=== PATIENT | male | born 1975 | race Caucasian/White ===

== ENCOUNTER 2017-07-04 08:02 | Emergency (ER) | payer SELFPAY ==
[2017-07-04] MEDS ORDERED: ASPIRIN 325 MG TAB ONE (08:31)
[2017-07-04 08:53] LABS: Absolute Lymphocytes (CBC) 1.1 K/uL (0.7-4.9); Absolute Monocytes 0.7 K/uL (0.1-1.3); Absolute Neutrophil 5.9 K/uL (1.8-8.0); Basophils % 0.5 % (0-1.3); Eosinophils % 0.9 % (0-4.4); Hematocrit 47.8 % (39.6-49.0); Lymphocytes % 14.2 % (15.3-44.8); MCH 32.1 pg (27.0-35.0); MCV 92.2 fL (80-100); Monocytes % 8.8 % (3.3-12.3); RBC Red Blood Cell Count 5.18 M/uL (4.33-5.43)
[2017-07-04 08:59] LABS: Protime INR 1.11
[2017-07-04 09:05] LABS: Bicarbonate 25 mEq/L (21-31); Glucose Level 104 mg/dL (65-120); Potassium 3.4 mEq/L (3.6-5.0); Sodium Level 138 mEq/L (135-145)
[2017-07-04 09:11] LABS: ALT/SGPT 48 IU/L (10-60); AST/SGOT 47 IU/L (10-42); Albumin 4.8 g/dL (3.2-5.5); Alkaline Phosphatase 68 IU/L (42-121); BUN Blood Urea Nitrogen 10 mg/dL (6-20); Bilirubin Direct 0.2 mg/dL (0-0.2); Bilirubin Total 1.3 mg/dL (0.3-1.2); Creatine Phosphokinase 795 IU/L (22-269); Magnesium 1.9 mg/dL (1.8-2.5); Protein, Total 8.7 g/dL (6.0-8.3)
[2017-07-04 09:13] LABS: CKMB Creatine Kinase MB 4.7 ng/ml (0.3-4.0)
--- NOTE | 2017-07-04 09:44 | RAD REPORT ---
EXAM DESCRIPTION: Dov Single View07/04/2017 8:45 am CLINICAL HISTORY: Chest pain COMPARISON: none FINDINGS: The lungs appear clear of acute infiltrate. The heart is normal size IMPRESSION: No acute abnormalities displayed
[2017-07-04] MEDS ORDERED: NA CHLORIDE 0.9% 1,000 ML ONE (10:05)
--- NOTE | 2017-07-04 12:01 | EDPHYS ---
Physician Documentation [facility] Name: Mal Valdez Age: 42 yrs Sex: Male : 1975 Arrival Date: 07/04/2017 Time: 08:05 Bed 17 Private MD: ED Physician William Granados HPI: 07/04 09:00 This 42 yrs old Male presents to ER via Ambulatory with complaints of Chest pm1 Pain. 09:00 The patient or guardian reports chest pain that is located primarily in the substernal pm1 area. Onset: 1 hour prior to arrival. The pain does not radiate. Associated signs and symptoms: Pertinent negatives: abdominal pain, cough, diaphoresis, dizziness, headache, nausea, palpitations, shortness of breath, syncope. The chest pain is described as a pressure. Duration: The patient or guardian reports multiple episodes, that have now resolved, the episodes last approximately 1 minute(s). Modifying factors: The symptoms are alleviated by nothing. the symptoms are aggravated by nothing. Severity of pain: in the emergency department the pain has improved. The patient has not experienced similar symptoms in the past. The patient has not recently seen a physician, and does not have an established primary care provider, just moved to [facility], PCP is out of town and has not seen his PCP in the past 3 months. Has not taken Norvasc for the past 3 months. Historical: - Allergies: 08:19 Tylenol; iw - Home Meds: 08:19 Norvasc 10 mg Oral tab 1 tab three times a day [Active]; iw - PMHx: 08:19 Hypertension; iw - PSHx: 08:19 None; iw - Immunization history:: Adult Immunizations not up to date. - Social history:: Smoking status: Patient/guardian denies using tobacco. ROS: 09:00 Constitutional: Negative for fever, chills, and weight loss, Eyes: Negative for injury, pm1 pain, redness, and discharge, ENT: Negative for injury, pain, and discharge, Neck: Negative for injury, pain, and swelling. 09:00 Respiratory: Negative for shortness of breath, cough, wheezing, and pleuritic chest pain, Abdomen/GI: Negative for abdominal pain, nausea, vomiting, diarrhea, and constipation, Back: Negative for injury and pain, : Negative for injury, bleeding, discharge, and swelling, MS/Extremity: Negative for injury and deformity, Skin: Negative for injury, rash, and discoloration, Neuro: Negative for headache, weakness, numbness, tingling, and seizure. 09:00 Cardiovascular: Positive for chest pain, Negative for edema, palpitations. Exam: 09:00 Constitutional: This is a well developed, well nourished patient who is awake, alert, pm1 and in no acute distress. Head/Face: Normocephalic, atraumatic. Neck: Trachea midline, no thyromegaly or masses palpated, and no cervical lymphadenopathy. Supple, full range of motion without nuchal rigidity, or vertebral point tenderness. No Meningismus. Chest/axilla: Normal chest wall appearance and motion. Nontender with no deformity. No lesions are appreciated. Cardiovascular: Regular rate and rhythm with a normal S1 and S2. No gallops, murmurs, or rubs. Normal PMI, no JVD. No pulse deficits. Respiratory: Lungs have equal breath sounds bilaterally, clear to auscultation and percussion. No rales, rhonchi or wheezes noted. No increased work of breathing, no retractions or nasal flaring. Abdomen/GI: Soft, non-tender, with normal bowel sounds. No distension or tympany. No guarding or rebound. No evidence of tenderness throughout. Back: No spinal tenderness. No costovertebral tenderness. Full range of motion. Skin: Warm, dry with normal turgor. Normal color with no rashes, no lesions, and no evidence of cellulitis. MS/ Extremity: Pulses equal, no cyanosis. Neurovascular intact. Full, normal range of motion. 09:00 Neuro: Orientation: is normal, Motor: is normal, moves all fours, Gait: is steady, at a normal pace, without difficulty. Vital Signs: 08:20 BP 165 / 117; Pulse 93; Resp 18; Temp 98.8(TE); Pulse Ox 97% ; Weight 81.65 kg; Height iw 5 ft. 11 in. (180.34 cm); Pain 8/10; 08:40 BP 184 / 120; Pulse 90; Resp 18 S; Pulse Ox 97% on R/A; aa5 09:00 BP 169 / 107; Pulse 76; Resp 18 S; Pulse Ox 97% on R/A; Pain 0/10; aa5 10:20 BP 163 / 114; Pulse 88; Resp 21; Temp 98.3; Pulse Ox 100% on R/A; Pain 6/10; ed1 11:16 BP 182 / 117; Pulse 73; Resp 17; Temp 98.7(O); Pulse Ox 99% on R/A; Pain 6/10; ed1 08:20 Body Mass Index 25.11 (81.65 kg, 180.34 cm) iw 11:16 Partick VIVEK Hatfield notified of blood pressure results. ed1 MDM: 08:25 Patient medically screened. pm1 11:58 Data reviewed: vital signs. Data interpreted: Pulse oximetry: on room air is 99 %. pm1 Interpretation: normal. Counseling: I had a detailed discussion with the patient and/or guardian regarding: the historical points, exam findings, and any diagnostic results supporting the discharge/admit diagnosis, the need for further work-up and treatment in the hospital, Patient refusing repeat troponin. Patient just wants some medication for his blood pressure and to go back to work now. Patient previously taking Norvasc and would like to have a prescription for it. 07/04 08:25 Order name: Basic Metabolic Panel; Complete Time: 09:20 pm07/04 08:25 Order name: BNP; Complete Time: 09:20 pm07/04 08:25 Order name: CBC with Diff; Complete Time: 09:20 pm07/04 08:25 Order name: Ckmb; Complete Time: 09:20 pm07/04 08:25 Order name: CPK; Complete Time: 09:20 pm07/04 08:25 Order name: LFT's; Complete Time: 09:20 pm07/04 08:25 Order name: Magnesium; Complete Time: 09:20 pm07/04 08:25 Order name: PT-INR; Complete Time: 09:20 pm07/04 08:25 Order name: Ptt, Activated; Complete Time: 09:20 pm07/04 08:25 Order name: Troponin (emerg Dept Use Only); Complete Time: 09:20 pm1 07/04 08:25 Order name: XRAY Chest (1 view); Complete Time: 09:48 pm1 07/04 08:25 Order name: EKG; Complete Time: 08:26 pm07/04 08:25 Order name: Cardiac monitoring; Complete Time: 08:39 pm1 07/04 08:25 Order name: EKG - Nurse/Tech; Complete Time: 08:39 pm1 07/04 08:25 Order name: IV Saline Lock; Complete Time: 08:39 pm1 07/04 08:25 Order name: Labs collected and sent; Complete Time: 08:39 pm1 07/04 08:25 Order name: O2 Per Protocol; Complete Time: 08:39 pm1 07/04 08:25 Order name: O2 Sat Monitoring; Complete Time: 08:39 pm1 Administered Medications: 08:32 Drug: Aspirin 325 mg Route: PO; aa5 09:51 Follow up: Response: No adverse reaction aa5 10:17 Drug: NS 0.9% 1000 ml Route: IV; Rate: 1000 ml; Site: right antecubital; ed1 12:10 Follow up: IV Status: Completed infusion; IV Intake: 1000ml ed1 Disposition: 13:01 Co-signature as Attending Physician, William Granados MD I agree with the assessment and wa plan of care. Disposition: 07/04/17 12:00 Patient has left against medical advice. Impression: Chest pain, unspecified, Essential (primary) hypertension. - Patients states they are going to Home. - Condition is Undetermined. - Discharge Instructions: Nonspecific Chest Pain, Hypertension, How to Take Your Blood Pressure, [id number], DASH Eating Plan, Managing Your High Blood Pressure. - Prescriptions for Norvasc 10 mg Oral Tablet - take 1 tablet by ORAL route once daily; 30 tablet. Work release form form. Follow up: Emergency Department; When: As needed; Reason: Worsening of condition. Follow up: Private Physician; When: Upon discharge from the Emergency Department; Reason: Recheck today's complaints, Continuance of care, Re-evaluation by your physician. - Problem is new. - Symptoms have improved. Signatures: Dispatcher [employer] EDMS Yvette Callahan RN RN iw Calderon, Audri, RN RN aa5 Rebecca Hyde, INSPECTOR ELEVATORS INSPECTOR ELEVATORS ed1 Lalo Hatfield, CLOTH LAYER CLOTH LAYER pm1 William Granados MD MD wa Corrections: (The following items were deleted from the chart) 12:12 12:00 07/04/2017 12:00 Patients has left against medical advice. Impression: Chest ed1 pain, unspecified; Essential (primary) hypertension. Patient states they are going to Home. Condition is Undetermined. Follow up: Emergency Department; When: As needed; Reason: Worsening of condition. Follow up: Private Physician; When: Upon discharge from the Emergency Department; Reason: Recheck today's complaints, Continuance of care, Re-evaluation by your physician. Problem is new. Symptoms have improved. pm1
--- NOTE | 2017-07-04 12:01 | ER ---
Nurse's Notes [facility] Name: Mal Valdez Age: 42 yrs Sex: Male : 1975 Arrival Date: 07/04/2017 Time: 08:05 Bed 17 Private MD: Diagnosis: Chest pain, unspecified;Essential (primary) hypertension Presentation: 07/04 08:17 Presenting complaint: Patient states: mid back pain X 2 days, out of BP meds X 3 iw months, and started having chest pain this morning, midsternal, feels like heartburn, pressure, intermittent X 1 hour, denies n/v. Transition of care: patient was not received from another setting of care. Onset of symptoms was July 04, 2017. Initial Sepsis Screen: Does the patient meet any 2 criteria? No. Patient's initial sepsis screen is negative. Does the patient have a suspected source of infection? No. Patient's initial sepsis screen is negative. Care prior to arrival: None. 08:17 Method Of Arrival: Ambulatory iw 08:17 Acuity: [place] 3 iw Historical: - Allergies: 08:19 Tylenol; iw - Home Meds: 08:19 Norvasc 10 mg Oral tab 1 tab three times a day [Active]; iw - PMHx: 08:19 Hypertension; iw - PSHx: 08:19 None; iw - Immunization history:: Adult Immunizations not up to date. - Social history:: Smoking status: Patient/guardian denies using tobacco. Screenin:30 Abuse screen: Denies threats or abuse. Nutritional screening: No deficits noted. aa5 Tuberculosis screening: No symptoms or risk factors identified. Fall Risk None identified. Assessment: 08:25 General: Appears comfortable, Behavior is calm, cooperative. Pain: Complains of pain in aa5 mid back and mid-sternal area Pain does not radiate. Pain currently is 8 out of 10 on a pain scale. Quality of pain is described as pressure, sharp, "heartburn" Pain began back pain 2-3 days ago and chest pain today Is continuous. Neuro: Level of Consciousness is awake, alert, obeys commands, Oriented to person, place, time, situation. Cardiovascular: Heart tones S1 S2 present Capillary refill < 3 seconds in bilateral fingers Patient's skin is warm and dry. Rhythm is sinus rhythm. Respiratory: Airway is patent Respiratory effort is even, unlabored, Respiratory pattern is regular, symmetrical, Breath sounds are clear bilaterally. GI: No signs and/or symptoms were reported involving the gastrointestinal system. Patient currently denies diarrhea, nausea, vomiting. : No signs and/or symptoms were reported regarding the genitourinary system. Denies burning with urination, inability to void. EENT: No signs and/or symptoms were reported regarding the EENT system. Derm: Skin is pink, warm \\T\\ dry. Musculoskeletal: Range of motion: intact in all extremities. 10:20 Reassessment: Patient appears in no apparent distress at this time. Patient and/or ed1 family updated on plan of care and expected duration. Pain level reassessed. Patient is alert, oriented x 3, equal unlabored respirations, skin warm/dry/pink. Patient states feeling better. Patient states symptoms have improved. 11:16 Reassessment: Patient appears in no apparent distress at this time. No changes from ed1 previously documented assessment. Patient and/or family updated on plan of care and expected duration. Pain level reassessed. Patient is alert, oriented x 3, equal unlabored respirations, skin warm/dry/pink. "Do you know how much longer this is going to take? I was already supposed to be at work." Lalo Hatfield NP notified. Vital Signs: 08:20 BP 165 / 117; Pulse 93; Resp 18; Temp 98.8(TE); Pulse Ox 97% ; Weight 81.65 kg; Height iw 5 ft. 11 in. (180.34 cm); Pain 8/10; 08:40 BP 184 / 120; Pulse 90; Resp 18 S; Pulse Ox 97% on R/A; aa5 09:00 BP 169 / 107; Pulse 76; Resp 18 S; Pulse Ox 97% on R/A; Pain 0/10; aa5 10:20 BP 163 / 114; Pulse 88; Resp 21; Temp 98.3; Pulse Ox 100% on R/A; Pain 6/10; ed1 11:16 BP 182 / 117; Pulse 73; Resp 17; Temp 98.7(O); Pulse Ox 99% on R/A; Pain 6/10; ed1 08:20 Body Mass Index 25.11 (81.65 kg, 180.34 cm) iw 11:16 Bhupinder Hatfield NP notified of blood pressure results. ed1 ED Course: 08:05 Patient arrived in ED. as 08:18 Triage completed. iw 08:25 Lalo Hatfield NP is PHCP. pm1 08:25 William Granados MD is Attending Physician. pm1 08:25 Patient has correct armband on for positive identification. Placed in gown. Bed in low aa5 position. Call light in reach. Side rails up X2. 08:25 senior technical analyst on. Pulse ox on. NIBP on. aa5 08:25 Arm band placed on. aa5 08:28 Rachel Winkler, RN is Primary Nurse. aa5 08:30 No provider procedures requiring assistance completed. Patient maintains SpO2 aa5 saturation greater than 95% on room air. 08:35 Initial lab(s) drawn, by me, sent to lab. Inserted saline lock: 20 gauge in right aa5 antecubital area, using aseptic technique. Blood collected. 08:43 EKG done, by technical support assistant. reviewed by Lalo Hatfield NP. tc 08:46 XRAY Chest (1 view) In Process Unspecified. EDMS 09:59 Primary Nurse role handed off by Rachel Winkler, TYLER ed1 09:59 Rebecca Hyde LVN is Primary Nurse. ed1 10:00 Report given to WILLIE Fernandez. aa5 11:19 Resting quietly. Awaiting re-evaluation by ER provider. ed1 12:10 IV discontinued, intact, bleeding controlled, No redness/swelling at site. Pressure ed1 dressing applied. Administered Medications: 08:32 Drug: Aspirin 325 mg Route: PO; aa5 09:51 Follow up: Response: No adverse reaction aa5 10:17 Drug: NS 0.9% 1000 ml Route: IV; Rate: 1000 ml; Site: right antecubital; ed1 12:10 Follow up: IV Status: Completed infusion; IV Intake: 1000ml ed1 Intake: 12:10 IV: 1000ml; Total: 1000ml. ed1 Outcome: 12:10 AMA AMA form signed ed1 12:10 Condition: good 12:10 Discharge instructions given to patient, Instructed on discharge instructions, follow up and referral plans. medication usage, Demonstrated understanding of instructions, follow-up care, medications, Prescriptions given X 1. 12:12 Patient left the ED. ed1 Signatures: Dispatcher [employer] EDMS Kimber Miranda as Yvette Callahan, RN RN iw Rachel Winkler, RN RN aa5 Rebecca Hyde, TANK FURNACE OPERATOR TANK FURNACE OPERATOR ed1 Malissa Moon, portfolio lead EKG Ttc Lalo Hatfield, OCEANOGRAPHIC METEOROLOGIST OCEANOGRAPHIC METEOROLOGIST pm1 Corrections: (The following items were deleted from the chart) 08:20 08:17 Presenting complaint: Patient states: back pain X 2 days, out of BP meds X 3 iw months, and started having chest pain this morning, midsternal, feels like heartburn, pressure, intermittent X 1 hour, denies n/v iw 08:21 08:20 Pulse 93bpm; Resp 18bpm; Pulse Ox 97%; Temp 98.8F Temporal; 81.65 kg; Height 5 iw ft. 11 in.; BMI: 25.1; Pain 8/10; iw
--- NOTE | 2017-07-04 12:18 | EKG ---
Test Date: 2017-07-04 Test Time: 08:35:30 Substation Operator Conversion: LETICIA MEASUREMENT RESULTS: Intervals: Rate: 84 AK: 176 QRSD: 84 QT: 392 QTc: 463 [place]: P: 34 AK: 176 QRS: 37 T: 23 INTERPRETIVE STATEMENTS: Normal sinus rhythm Normal ECG No previous ECG available for comparison Electronically Signed On 07-04-17 12:17:29 CDT by Ton Robertson
== END 2017-07-04 12:12 | disposition left against medical advice (07) ==
LOC: ER 08:02
DX: R07.9 Chest pain, unspecified (principal); I10 Essential (primary) hypertension
CPT/HCPCS: 36415; 71045; 80048; 80076; 82550; 82553; 83735; 83880; 84484; 85025; 85610; 85730; 93005; 96360; 96361; 99285; J7030

== ENCOUNTER 2017-12-04 08:56 | Emergency (ER) | payer SELFPAY ==
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
[2017-12-04] MEDS ORDERED: KETOROLAC 30 MG/ML INJ ONE (10:02)
== END 2017-12-04 10:16 | disposition home or self-care (01) ==
LOC: ER 08:56
DX: M54.5 Low back pain (principal); I10 Essential (primary) hypertension
CPT/HCPCS: 72100; 96372; 99284